=== PATIENT | female | born 1950 | race Caucasian/White ===

== ENCOUNTER 2021-08-14 18:02 | Emergency (ER) | payer MEDICARE, OTHER ==
[~2021-08-14] VITALS: Ht 144.8 cm; Wt 51.7 kg
--- NOTE | 2021-08-14 21:10 | NUR ---
Patient in triage waiting for ER MD to evaluate
--- NOTE | 2021-08-14 21:11 | NUR ---
ENMA Dumas examining patient.
[2021-08-14 21:13] VITALS: BP_SYST 152
[2021-08-14 22:00] LABS: BILIRUBIN,URINE NEGATIVE (NEGATIVE); BLOOD, URINE NEGATIVE (NEGATIVE); CLARITY/URINE CLEAR (CLEAR); COLOR,URINE YELLOW (YELLOW); GLUCOSE,URINE NEGATIVE (NEGATIVE); KETONES,URINE TRACE (NEGATIVE); LEUKOCYTE ESTERASE ,URINE NEGATIVE (NEGATIVE); NITRITE, URINE NEGATIVE (NEGATIVE); PROTEIN URINE NEGATIVE (NEGATIVE); UROBILINOGEN,URINE 0.2 (0.2-1.0)
[2021-08-14 22:03] LABS: BASOPHILS # (AUTO) 0.1 K/uL (0.0-0.2); BASOPHILS % (AUTO) 0.4 % (0.0-2.0); EOSINOPHILS % (AUTO) 0.3 % (0.0-4.0); HEMATOCRIT 39.6 % (36-48); HEMOGLOBIN 13.5 g/dL (12.0-16.0); LYMPHOCYTES # (AUTO) 1.9 K/uL (1.0-5.5); LYMPHOCYTES % (AUTO) 15.7 % (20.5-51.5); MEAN CORPUSCULAR HEMOGLOBIN 28 pg (27-31); MEAN CORPUSCULAR HGB CONC 34 % (32-36); MEAN CORPUSCULAR VOLUME 81 fL (79.0-98.0); MONOCYTES # (AUTO) 0.4 K/uL (0.0-1.0); MONOCYTES % (AUTO) 3.7 % (1.7-9.3); NEUTROPHILS # (AUTO) 9.6 K/uL (1.8-7.7); NEUTROPHILS % (AUTO) 79.9 % (40.0-70.0); PLATELET COUNT (AUTO) 196 K/uL (130-430); RED BLOOD CELL COUNT(AUTO) 4.89 MIL/uL (4.2-6.2)
[2021-08-14] MEDS ORDERED: MOM PO (23:45)
--- NOTE | 2021-08-14 23:45 | NUR ---
Patient brought in by family presents to the emergency room with complaints of abdominal pain, 6/10 PS since 8:00 this morning. Reports 1 episode of vomiting. Patient denies any diarrhea or coffee-ground emesis. She has no elevating factors and therefore decided to come to the emergency room. Patient denies any painful urination and blood in urine. Denies fever or chills. Patient breathing easy, respirations even unlabored.
--- NOTE | 2021-08-14 23:47 | NUR ---
Dr Stevenson verbally ordered to discontiue ordered medicines
[2021-08-14 23:48] VITALS: BP_SYST 151
[2021-08-14] MEDS: NACL 0.9% 1,000 ML IV ONE (23:48)
[2021-08-14] MEDS: KETOROLAC TROMETHAMINE 30 MG VIAL IVP ONE (23:48)
--- NOTE | 2021-08-14 23:48 | NUR ---
Patient given written and verbal discharge instructions by Dr Stevenson and verbalizes understanding. ER MD discussed with patient the results and treatment provided. Patient in stable condition. ID arm band removed by Dr Stevenson. Rx of Milk of Magnesia given by Dr Stevenson. Patient educated on pain management and to follow up with PMD. Opportunity for questions provided and answered.
[2021-08-14 23:49] LABS: ANION GAP 10 (5-15); CALCIUM 9.2 mg/dL (8.4-11.0); CHLORIDE 103 mmol/L (98-107); CREATININE 0.65 mg/dL (0.55-1.30); GLUCOSE 130 mg/dL (70-99); POTASSIUM 3.7 mmol/L (3.5-5.1); SODIUM SERUM 140 mmol/L (136-145); UREA NITROGEN, BLOOD 12 mg/dL (8-21)
[2021-08-14 23:56] LABS: ALANINE AMINOTRANSFERASE 18 U/L (12-78); ALBUMIN 3.7 g/dL (3.4-4.8); ASPARTATE AMINOTRANSFERASE 16 U/L (10-37); TOTAL BILIRUBIN 0.9 mg/dL (0.0-1.0)
== END 2021-08-14 23:48 | disposition home or self-care (01) ==
LOC: SED 18:02
DX: K59.00 Constipation, unspecified (principal); R10.84 Generalized abdominal pain; E11.9 Type 2 diabetes mellitus without complications; Z79.899 Other long term (current) drug therapy
CPT/HCPCS: 36415; 76376; 80053; 81003; 83605; 85025; 87040; 99284